=== PATIENT | female | born 1970 | race Caucasian/White ===

== ENCOUNTER 2018-04-11 06:59 | Emergency (ER) | payer OTHER ==
[~2018-04-11] VITALS: Ht 165.1 cm; Wt 122.0 kg
[~2018-04-11 06:59] MED LIST: ALBU90OI INH; AMLO10 PO; ASCO500 PO; ASPI325; ASPI81CH PO; ASPI81EC PO; ATEN25 PO; Bactrim Ds Tab1 EACH PO; CHOL10002 PO; Cipro500 MG PO; Cymbalta60 MG PO; DOXY100 PO; ERYSTE250 PO; ESTR2 PO; FISH1000 PO; Flagyl500 MG PO; GABA600 PO; HYDACE10B PO; HYDACE5 PO; HYDR1TAB94 PO; IBUP800 PO; INDO50 PO; META800 PO; MUCUS DM MAX T1 EACH PO; MULVITA; NAPR500 PO; NAPR550 PO; NITR100CA PO; NORT25 PO; Naprosyn500 MG PO; OXYACE5T PO; Omeprazole20 M1 PO; POTCHL20ER PO; PROM25 PO; Percocet 5-3251 EACH PO; Pyridium100 MG PO; ROXICODONE5 MG PO; RXNAPNA550 PO; Sprintec1 EACH PO; TOCO1000 PO; TOCO400 PO; Therapeutic M1 EAC5 PO; Zofran Odt4 MG SL
[2018-04-11] MEDS ORDERED: Norco 5-325 Ta1 EACH PO (09:48)
== END 2018-04-11 10:31 | disposition home or self-care (01) ==
LOC: ER 06:59
DX: R31.9 Hematuria, unspecified (principal); I10 Essential (primary) hypertension; F32.9 Major depressive disorder, single episode, unspecified; F41.9 Anxiety disorder, unspecified; J44.9 Chronic obstructive pulmonary disease, unspecified; F31.9 Bipolar disorder, unspecified; Z88.0 Allergy status to penicillin; Z88.8 Allergy status to other drugs, medicaments and biological substances; Z79.899 Other long term (current) drug therapy; Z79.82 Long term (current) use of aspirin; Z87.891 Personal history of nicotine dependence
CPT/HCPCS: 74176; 99284

== ENCOUNTER 2021-10-13 08:24 | Emergency (ER) | payer OTHER ==
[~2021-10-13] VITALS: Ht 165.1 cm; Wt 136.1 kg
[~2021-10-13 08:24] MED LIST changes: +Norco 5-325 Ta1 EACH PO
[2021-10-13 09:14] LABS: BASOPHILS ABSOLUTE AUTO 0.04 K/mm3 (0.00-0.23); BASOPHILS PERCENT AUTO 0 % (0-2); EOSINOPHILS ABSOLUTE AUTO 0.09 K/mm3 (0.00-0.68); EOSINOPHILS PERCENT AUTO 1 % (0-6); Hematocrit 41.7 % (33.0-51.0); Hemoglobin 14.5 g/dL (11.5-16.0); IMMATURE GRAN ABSOLUTE AUTO 0.02 K/mm3 (0.00-0.10); IMMATURE GRAN PERCENT AUTO 0 % (0-1); LYMPHOCYTES ABSOLUTE AUTO 1.73 K/mm3 (0.84-5.20); LYMPHOCYTES PERCENT AUTO 17 % (21-46); MONOCYTES ABSOLUTE AUTO 0.43 K/mm3 (0.16-1.47); MONOCYTES PERCENT AUTO 4 % (4-13); Mean Corpuscular HGB 34.7 pg (26.0-34.0); Mean Corpuscular HGB Conc 34.8 g/dL (31.5-36.5); Mean Corpuscular Volume 100 fL (80-100); Mean Platelet Volume 10.8 fL (9.1-12.4); NEUTROPHILS ABSOLUTE AUTO 7.83 K/mm3 (1.96-9.15); NEUTROPHILS PERCENT AUTO 77 % (41-73); Platelet Count 237 K/mm3 (150-400); RDW Coefficient Variation 12.4 % (11.7-14.2); Red Blood Cell Count 4.18 M/mm3 (3.80-5.20); White Blood Cell Count 10.14 K/mm3 (4.00-11.30)
[2021-10-13 09:46] LABS: Alanine Aminotransfer (ALT/SGP 130 U/L (12-78); Albumin, Blood 3.7 g/dL (3.4-5.0); Albumin/Globulin Ratio 1.1 (0.8-1.8); Alk Phos 113 U/L (50-136); Anion Gap 8 mmol/L (6-16); Aspartate Aminotrans (AST/SGOT 49 U/L (12-37); Bilirubin, Total 0.9 mg/dL (0.1-1.0); Blood Urea Nitrogen 12 mg/dL (8-24); Bun/Creatinine Ratio 12.5 (12.0-20.0); CO2, Blood 26 mmol/L (21-32); Calcium, Blood 9.6 mg/dL (8.5-10.1); Chloride, Blood 105 mmol/L (98-108); Creatinine, Blood 0.96 mg/dL (0.40-1.00); Globulin, Blood 3.3 g/dL (2.2-4.0); Glomerular Filtration Rate >60 (60-); Glucose, Blood 193 mg/dL (70-99); Potassium, Blood 4.2 mmol/L (3.5-5.5); Sodium, Blood 139 mmol/L (136-145)
[2021-10-13 10:00] LABS: Source, Urine Clean Catch
[2021-10-13 10:07] LABS: Bilirubin, Urine Neg (Neg); Blood, Urine 5+ (Neg); Glucose Qualitative, Urine Neg (Neg); Ketones, Urine 1+ (Neg); Leukocyte Esterase, Urine 1+ (Neg); Nitrite, Urine Neg (Neg); Protein, Urine 1+ (Neg); Specific Gravity, Urine 1.015 (1.003-1.022); Urobilinogen, Urine NORM (Normal)
[2021-10-13 10:30] LABS: Appearance, Urine Cloudy (Clear); Color, Urine Yellow (P-Yellow)
[2021-10-13 10:34] LABS: Bacteria Few /hpf; Red Blood Cells, Urine TNTC /hpf (0-2); Squamous Epithelial Cells Few /hpf (Few)
[2021-10-13] MEDS ORDERED: KETO10 PO (11:27)
[2021-10-13] MEDS ORDERED: HYDR1TAB94 PO (11:27)
[2021-10-13] MEDS ORDERED: Flomax0.4 MG PO (11:27)
== END 2021-10-13 11:55 | disposition home or self-care (01) ==
LOC: ER 08:24
PROVIDERS: Physician Assistant
DX: N13.2 Hydronephrosis with renal and ureteral calculous obstruction (principal); I10 Essential (primary) hypertension; Z88.0 Allergy status to penicillin; Z88.8 Allergy status to other drugs, medicaments and biological substances; Z79.899 Other long term (current) drug therapy; Z79.82 Long term (current) use of aspirin
CPT/HCPCS: 36415; 74176; 76705; 76857; 80053; 81001; 83690; 84484; 85025; 87086; 93005; 93010; J1170; J1885; J2405; J7030

== ENCOUNTER 2021-10-24 18:44 | Emergency (ER) | payer OTHER ==
[~2021-10-24] VITALS: Ht 165.1 cm; Wt 127.0 kg
[~2021-10-24 18:44] MED LIST changes: +Flomax0.4 MG PO; +KETO10 PO
== END 2021-10-24 20:38 | disposition home or self-care (01) ==
LOC: ER 18:44
DX: U07.1 COVID-19 (principal); I10 Essential (primary) hypertension; J44.9 Chronic obstructive pulmonary disease, unspecified; Z88.0 Allergy status to penicillin; Z88.8 Allergy status to other drugs, medicaments and biological substances; Z79.82 Long term (current) use of aspirin; Z79.899 Other long term (current) drug therapy
CPT/HCPCS: 99284

== ENCOUNTER → 2021-11-14 | Outpatient (CLI) | payer OTHER ==
[~2021-11-14] MED LIST changes: +CEPH500 PO; +TAMS.4ER PO
[2021-11-14 14:44] LABS: Source, Urine Voided
[2021-11-14 15:14] LABS: Appearance, Urine Cloudy (Clear); Color, Urine Brown (P-Yellow); Glucose Qualitative, Urine Neg (Normal); Ketones, Urine 1+ (Neg); Leukocyte Esterase, Urine 1+ (Neg); Nitrite, Urine Neg (Neg); Protein, Urine 3+ (Neg); Specific Gravity, Urine 1.025 (1.003-1.022); pH, Urine 6.5 (5.0-8.0)
[2021-11-14 15:15] LABS: Bacteria Mod /hpf; Bilirubin, Urine Neg (Neg); Blood, Urine 2+ (Neg); Mucus Mod (0-Heavy); Red Blood Cells, Urine TNTC /hpf (0-2); Squamous Epithelial Cells Rare /hpf (Few); Urobilinogen, Urine NORM (Normal)
[2021-11-14 15:16] LABS: Calcium Oxalate Crystals Many /hpf
== END | disposition home or self-care (01) ==
LOC: LAB SHORT 14:41
PROVIDERS: Urology
DX: N20.1 Calculus of ureter (principal); N39.0 Urinary tract infection, site not specified
CPT/HCPCS: 81001; 87077; 87086; 87186

== ENCOUNTER → 2022-01-14 | Outpatient (CLI) | payer OTHER | LOC: LAB SHORT 17:50 | DX: R30.0 Dysuria (principal) | CPT/HCPCS: 87086 ==

== ENCOUNTER 2022-02-24 06:00 | Emergency (ER) | payer OTHER ==
[~2022-02-24] VITALS: Ht 165.1 cm; Wt 136.1 kg
[2022-02-24 07:09] LABS: BASOPHILS ABSOLUTE AUTO 0.04 K/mm3 (0.00-0.23); BASOPHILS PERCENT AUTO 0 % (0-2); EOSINOPHILS ABSOLUTE AUTO 0.41 K/mm3 (0.00-0.68); EOSINOPHILS PERCENT AUTO 4 % (0-6); Hematocrit 40.3 % (33.0-51.0); Hemoglobin 13.8 g/dL (11.5-16.0); IMMATURE GRAN ABSOLUTE AUTO 0.03 K/mm3 (0.00-0.10); IMMATURE GRAN PERCENT AUTO 0 % (0-1); LYMPHOCYTES ABSOLUTE AUTO 1.91 K/mm3 (0.84-5.20); LYMPHOCYTES PERCENT AUTO 20 % (21-46); MONOCYTES ABSOLUTE AUTO 0.68 K/mm3 (0.16-1.47); MONOCYTES PERCENT AUTO 7 % (4-13); Mean Corpuscular HGB 34.5 pg (26.0-34.0); Mean Corpuscular HGB Conc 34.2 g/dL (31.5-36.5); Mean Corpuscular Volume 101 fL (80-100); Mean Platelet Volume 11.4 fL (9.1-12.4); NEUTROPHILS ABSOLUTE AUTO 6.61 K/mm3 (1.96-9.15); NEUTROPHILS PERCENT AUTO 68 % (41-73); Platelet Count 215 K/mm3 (150-400); RDW Coefficient Variation 12.8 % (11.7-14.2); RDW Standard Deviation 46.9 fL (35.1-46.3); White Blood Cell Count 9.68 K/mm3 (4.00-11.30)
[2022-02-24 07:43] LABS: Source, Urine Clean Catch
[2022-02-24 07:45] LABS: Alanine Aminotransfer (ALT/SGP 109 U/L (12-78); Albumin, Blood 3.2 g/dL (3.4-5.0); Albumin/Globulin Ratio 0.9 (0.8-1.8); Alk Phos 121 U/L (50-136); Anion Gap 6 mmol/L (6-16); Aspartate Aminotrans (AST/SGOT 44 U/L (12-37); Bilirubin, Total 0.6 mg/dL (0.1-1.0); Blood Urea Nitrogen 8 mg/dL (8-24); Bun/Creatinine Ratio 9.2 (12.0-20.0); CO2, Blood 26 mmol/L (21-32); Calcium, Blood 9.5 mg/dL (8.5-10.1); Chloride, Blood 108 mmol/L (98-108); Creatinine, Blood 0.87 mg/dL (0.40-1.00); Globulin, Blood 3.4 g/dL (2.2-4.0); Glomerular Filtration Rate >60 (60-); Glucose, Blood 152 mg/dL (70-99); Sodium, Blood 140 mmol/L (136-145); Total Protein, Blood 6.6 g/dL (6.4-8.2)
[2022-02-24 07:57] LABS: Appearance, Urine Turbid (Clear); Bilirubin, Urine Neg (Neg); Blood, Urine 5+ (Neg); Color, Urine Brown (P-Yellow); Glucose Qualitative, Urine Neg (Neg); Protein, Urine 3+ (Neg); Specific Gravity, Urine 1.025 (1.003-1.022); Urobilinogen, Urine NORM (Normal)
[2022-02-24 08:18] LABS: Ketones, Urine Neg (Neg); Leukocyte Esterase, Urine 1+ (Neg); Nitrite, Urine Neg (Neg)
[2022-02-24 08:23] LABS: Red Blood Cells, Urine TNTC /hpf (0-2)
[2022-02-24 08:24] LABS: Squamous Epithelial Cells Rare /hpf (Few)
[2022-02-24 08:25] LABS: Amorphous Light (0-Heavy); Bacteria Mod /hpf; Mucus Heavy (0-Heavy)
[2022-02-24] MEDS ORDERED: TAMS.4ER PO (10:10)
[2022-02-24] MEDS ORDERED: CEFP200 PO (10:10)
[2022-02-24] MEDS ORDERED: HYDR1TAB94 PO (10:10)
== END 2022-02-24 10:45 | disposition home or self-care (01) ==
LOC: ER 06:00
PROVIDERS: Emergency Medicine
DX: N13.2 Hydronephrosis with renal and ureteral calculous obstruction (principal); I10 Essential (primary) hypertension; J44.9 Chronic obstructive pulmonary disease, unspecified; Z88.0 Allergy status to penicillin; Z91.048 Other nonmedicinal substance allergy status; Z79.899 Other long term (current) drug therapy
CPT/HCPCS: 36415; 74177; 80053; 81001; 83690; 85025; J0696; J1170; J2405; J3010; J7030; Q9967

== ENCOUNTER 2022-02-26 03:16 | Inpatient (IN) | payer OTHER ==
[~2022-02-26] VITALS: Ht 165.1 cm; Wt 135.5 kg
[~2022-02-26 03:16] MED LIST changes: +CEFP200 PO; +GABA300 PO; -GABA600 PO
[2022-02-26 04:46] LABS: BASOPHILS ABSOLUTE AUTO 0.04 K/mm3 (0.00-0.23); BASOPHILS PERCENT AUTO 0 % (0-2); EOSINOPHILS ABSOLUTE AUTO 0.36 K/mm3 (0.00-0.68); EOSINOPHILS PERCENT AUTO 4 % (0-6); Hematocrit 37.8 % (33.0-51.0); Hemoglobin 12.7 g/dL (11.5-16.0); IMMATURE GRAN ABSOLUTE AUTO 0.04 K/mm3 (0.00-0.10); IMMATURE GRAN PERCENT AUTO 0 % (0-1); LYMPHOCYTES ABSOLUTE AUTO 1.59 K/mm3 (0.84-5.20); LYMPHOCYTES PERCENT AUTO 16 % (21-46); MONOCYTES ABSOLUTE AUTO 0.77 K/mm3 (0.16-1.47); MONOCYTES PERCENT AUTO 8 % (4-13); Mean Corpuscular HGB 34.9 pg (26.0-34.0); Mean Corpuscular HGB Conc 33.6 g/dL (31.5-36.5); Mean Corpuscular Volume 104 fL (80-100); NEUTROPHILS ABSOLUTE AUTO 6.94 K/mm3 (1.96-9.15); NEUTROPHILS PERCENT AUTO 71 % (41-73); RDW Coefficient Variation 12.6 % (11.7-14.2); RDW Standard Deviation 48.2 fL (35.1-46.3); Red Blood Cell Count 3.64 M/mm3 (3.80-5.20); White Blood Cell Count 9.74 K/mm3 (4.00-11.30)
[2022-02-26 05:04] LABS: Albumin, Blood 3.3 g/dL (3.4-5.0); Bilirubin, Total 0.4 mg/dL (0.1-1.0); Bun/Creatinine Ratio 7.6 (12.0-20.0); Calcium, Blood 8.9 mg/dL (8.5-10.1); Creatinine, Blood 1.32 mg/dL (0.40-1.00); Globulin, Blood 3.2 g/dL (2.2-4.0); Potassium, Blood 3.8 mmol/L (3.5-5.5); Total Protein, Blood 6.5 g/dL (6.4-8.2)
[2022-02-26 05:20] LABS: Mean Platelet Volume 11.5 fL (9.1-12.4); Platelet Count 133 K/mm3 (150-400)
[2022-02-26 08:31] LABS: Source, Urine Clean Catch
[2022-02-26 08:36] LABS: Appearance, Urine Cloudy (Clear); Bilirubin, Urine Neg (Neg); Blood, Urine 5+ (Neg); Color, Urine Brown (P-Yellow); Glucose Qualitative, Urine Neg (Neg); Ketones, Urine 1+ (Neg); Leukocyte Esterase, Urine 2+ (Neg); Nitrite, Urine Neg (Neg); Protein, Urine 3+ (Neg); Urobilinogen, Urine NORM (Normal)
[2022-02-26 08:52] LABS: Bacteria Few /hpf; Red Blood Cells, Urine TNTC /hpf (0-2); Squamous Epithelial Cells Few /hpf (Few); White Blood Cells, Urine 50-100 /hpf (0-5)
[2022-02-26] MEDS ORDERED: SPIR25 PO (11:32)
[2022-02-26] MEDS ORDERED: BUPROPION XL450 MG PO (11:32)
[2022-02-26] MEDS ORDERED: FAMO40 PO (11:35)
[2022-02-26 15:25] LABS: SARS-Cov-2 (COVID-19) PCR, MMC NEGATIVE (NEGATIVE)
[2022-02-26 15:56] LABS: Source, Urine Nephrostomy
[2022-02-26 16:01] LABS: Appearance, Urine Turbid (Clear); Bilirubin, Urine Neg (Neg); Blood, Urine 5+ (Neg); Color, Urine Brown (P-Yellow); Glucose Qualitative, Urine Neg (Neg); Ketones, Urine 1+ (Neg); Leukocyte Esterase, Urine Neg (Neg); Nitrite, Urine Neg (Neg); Protein, Urine 4+ (Neg); Urobilinogen, Urine NORM (Normal); pH, Urine 6.5 (5.0-8.0)
[2022-02-26 16:12] LABS: Bacteria Few /hpf; Mucus Light (0-Heavy); Red Blood Cells, Urine TNTC /hpf (0-2); Renal Epithelial Rare /hpf (0-Rare); Squamous Epithelial Cells Not Seen /hpf (Few); White Blood Cells, Urine 0-2 /hpf (0-5)
--- NOTE | 2022-02-26 19:17 | NUR ---
SHIFT SUMMARY 12:30 RECEIVED PT TO 336 [facility]IA [employer]. SLIDE TX TO BED. PT ADMITTED FOR CRISTY R/T KIDNEY STONES AND BL FLANK PAIN. IVF'S STARTED PER EMAR; BOLUS GIVEN. DR AGUIRRE HERE TO TALK WITH PT AND OBTAIN CONSENT FOR NEPHROSTOMY TUBES TO BE PLACED; PT HAD BEEN NPO IN ER FOR PROCEDURE. 1400 PT TAKEN DOWN; 1540 RECEIVED REPORT THAT ONLY [address] AGUIRRE UNABLE TO PLACE L SIDE TUBE. PER REPORT, PT TO GO TO [place] NEXT WEEK FOR INTERVENTION. PT HAS BEEN UP TO [facility] WITH SBA, VOIDING PEPSI COLORED URINE. PT REPORTS USING FWW AT BASELINE AT HOME. FWW OBTAINED FOR SAFETY. PT'S MOM HERE TO VISIT AFTER PT RETURNED TO . PT RESTING QUIETLY AT THIS TIME. CALL LT IN REACH. REPORT GIVEN TO ONCOMING RN.
[2022-02-27 04:45] LABS: Hematocrit 34.2 % (33.0-51.0); Hemoglobin 11.4 g/dL (11.5-16.0); Mean Corpuscular HGB 34.4 pg (26.0-34.0); Mean Corpuscular HGB Conc 33.3 g/dL (31.5-36.5); Mean Corpuscular Volume 103 fL (80-100); Mean Platelet Volume 10.9 fL (9.1-12.4); Platelet Count 206 K/mm3 (150-400); RDW Coefficient Variation 12.8 % (11.7-14.2); RDW Standard Deviation 48.9 fL (35.1-46.3); Red Blood Cell Count 3.31 M/mm3 (3.80-5.20); White Blood Cell Count 8.11 K/mm3 (4.00-11.30)
[2022-02-27 05:03] LABS: Bun/Creatinine Ratio 8.2 (12.0-20.0); Calcium, Blood 8.4 mg/dL (8.5-10.1); Creatinine, Blood 0.98 mg/dL (0.40-1.00); Potassium, Blood 3.7 mmol/L (3.5-5.5)
--- NOTE | 2022-02-27 05:05 | NUR ---
SHIFT SUMMARY: PATIENT CONTINUES TO REPORT R FLANK/SIDE PAIN. ALTERNATING OXYCODONE 5MG AND FENTANYL 50 MCG ARE PROVIDEING GOOD PAIN CONTROL. PATIENT HAS A GOOD APPETITE OBSERVED. URINE IS LIGHT TEA COLORED FROM BLADDER. URINE IN RIGHT NEPHROSTOMY IS PINK. DRSG WAS RE-ENFORCED, OLD SHADING OBSERVED.
--- NOTE | 2022-02-27 12:25 | NUR ---
PSYCH CONSULT ORDERED [facility] SPOKE WITH MERCHANDISE HANDLER. MERCHANDISE HANDLER RELAYED MESSAGE TO ME THAT [facility] CHECKS IN WITH PT PERIODCALLY FOR MENTAL HEALTH FOLLOW UP. ON THE LAST FOLLOW UP PT VOICED HOMICIDAL AND SUICIDAL TENDENCIES DAILY. DR CARMEN NOTIFIED AND A PSYCH CONSULT HAS BEEN ORDERED.
--- NOTE | 2022-02-27 18:02 | NUR ---
DAY SHIFT SUMMARY 51 YR OLD FEMALE HER FOR CRISTY AND NEPHROSTOMY TUBE PLACEMENT. MEDICATED PER EMAR FOR PAIN. ABLE TO AMBULATE IN ROOM WITH WALKER AND STANDBY ASSIST. EMPTIES OWN NEPHROSTOMY BAG INTO URINAL FOR MESURING. A/O X4. PSYCH CONSULT ORDERED. POSSIBLE DISCHARGE TOMORROW. CALL LIGHT WITHIN REACH OF PT AND ABLE TO CALL APPROPRIATELY.
--- NOTE | 2022-02-28 07:32 | NUR ---
SHIFT SUMMARY: PATIENT CONTINUES TO REPORT R FLANK PAIN 8-06/28. OXYCODONE Q4H AND 1 DOSE OF IV FENTANYL FOR BREAKTHROUGH PAIN PROVIDED EFFECTIVE PAIN CONTROL. PATIENT AMBULATED IN THE [place], APPROXIMATELY 100FT AND TOLERATED ACTIVITY WELL.
--- NOTE | 2022-02-28 17:20 | NUR ---
DAY SHIFT SUMMARY 51 YR OLD FEMALE WITH CRISTY AND NEPHROSTOMY TUBE PLACED TO RT SIDE. PT A/O AND INDEPENDENT WITH WALKER IN ROOM. CONTINUIOUS FLUIDS, RA. CALL LIGHT WITHIN REACH. PAIN MEDICATED PER EMAR. ABLE TO CALL APPROPRIATELY. NO ACUTE CHANGES THIS SHIFT.
[2022-02-28] MEDS ORDERED: DOCU100 PO (18:29)
[2022-02-28] MEDS ORDERED: ONDA4ODT MM (18:29)
[2022-02-28] MEDS ORDERED: OXAYDO5 M1 PO (18:31)
[2022-02-28] MEDS ORDERED: MIRALAX17 GM PO (18:31)
[2022-02-28] MEDS ORDERED: ACIDOPHILUS1 EAC3 PO (18:32)
--- NOTE | 2022-02-28 18:56 | NUR ---
DISCHARGE SUMMARY PT PULLED IV HERSELF STATING SHE BECAME IMPATIENT. SITE ASSESSED AND WRAPPED. PAPERWORK PREPAIRED AND PRINTED. EDUCATION REVIEWED WITH AND SIGNED BY PT. PT TRANSPORTED DOWN TO [facility] ALONG WITH PERSONAL BELONGINGS TO RIDE.
== END 2022-02-28 19:43 | disposition home or self-care (01) | DRG 699 ==
LOC: ER 03:16 → MEDS 10:32
PROVIDERS: Emergency Medicine; Nurse Practitioner Acute Care; Radiology Diagnostic Radiology; ADMIT Internal Medicine
PROC: 0T9030Z Drainage of Right Kidney with Drainage Device, Percutaneous Approach (ICD-10-PCS; principal; 2022-02-26)
DX: T83.193A Other mechanical complication of other urinary stent, initial encounter (principal); N13.6 Pyonephrosis; E87.2 Acidosis; Z68.42 Body mass index [BMI] 45.0-49.9, adult; N17.9 Acute kidney failure, unspecified; Z20.822 Contact with and (suspected) exposure to COVID-19; I10 Essential (primary) hypertension; F41.9 Anxiety disorder, unspecified; E66.01 Morbid (severe) obesity due to excess calories; R73.9 Hyperglycemia, unspecified; G47.33 Obstructive sleep apnea (adult) (pediatric); J44.9 Chronic obstructive pulmonary disease, unspecified; F90.9 Attention-deficit hyperactivity disorder, unspecified type; M79.7 Fibromyalgia; F31.9 Bipolar disorder, unspecified; G89.29 Other chronic pain; M54.9 Dorsalgia, unspecified; Z90.710 Acquired absence of both cervix and uterus; Z88.8 Allergy status to other drugs, medicaments and biological substances; Z88.0 Allergy status to penicillin; Z90.722 Acquired absence of ovaries, bilateral; Z98.890 Other specified postprocedural states; Z90.89 Acquired absence of other organs; Z79.82 Long term (current) use of aspirin; Z87.891 Personal history of nicotine dependence; Z79.899 Other long term (current) drug therapy; Y83.1 Surgical operation with implant of artificial internal device as the cause of abnormal reaction of the patient, or of later complication, without mention of misadventure at the time of the procedure
CPT/HCPCS: 36415; 50432; 76937; 80048; 80053; 81001; 83036; 83605; 85025; 85027; 87086; 94760; 96374; 96375; 96376; 99152; 99153; 99285-25; A9270; C1729; C1769; J0696; J1170; J1885; J2250; J2270; J3010; J7030; J7120; Q9967; U0004

== ENCOUNTER → 2022-04-03 | Outpatient (CLI) | payer OTHER ==
[~2022-04-03] MED LIST changes: +ACIDOPHILUS1 EAC3 PO; +BUPROPION XL450 MG PO; +DOCU100 PO; +FAMO40 PO; +MIRALAX17 GM PO; +ONDA4ODT MM; +OXAYDO5 M1 PO; +SPIR25 PO
== END ==
LOC: LAB SHORT 17:41 → LAB 17:41
DX: N39.0 Urinary tract infection, site not specified (principal)
CPT/HCPCS: 87077; 87086; 87186

== ENCOUNTER 2023-02-26 07:47 | Day surgery (SDC) | payer OTHER ==
[~2023-02-26] VITALS: Ht 165.1 cm; Wt 126.7 kg
--- NOTE | 2023-02-26 07:10 | NUR ---
02/26/23 [address] TOSCANO, SEE ANESTHESIA RECORDS.
[~2023-02-26 07:47] MED LIST changes: +FAMO20 PO
[2023-02-26 08:28] VITALS: BP 142/70
--- NOTE | 2023-02-26 08:42 | NUR ---
[facility] in [facility] warming gown applied. Patient states colon prep results clear. History, Chart, Medications and Allergies reviewed before start of procedure.Lungs clear T/O to Auscultation. Patient confirms NPO status and agrees with scheduled surgery. Pre-Op teaching done. Pt verbalizes understanding. Patient States Post-Procedure ride home has been arranged.
[2023-02-26 09:36] VITALS: BP 129/81
[2023-02-26 09:47] VITALS: BP 132/81
--- NOTE | 2023-02-26 10:19 | NUR ---
DISCHARGE SUMMARY PT A&OX4, VSS/RA, ELIZABETH PO H20, IV DC'D, DRESSED SELF, DAUGHTER AT BEDSIDE, DC INS PROVIDED, PT REP UNDERSTANDING THOSE INSTRUCTIONS. LEFT DEPT VIA WC WITH RN, TO GO HOME WITH MOM [employer] AND DAUGHTER BRENT, WITH ALL PERSONAL POSSESSIONS INCLUDING GLASSES AND DC INS.
== END 2023-02-26 23:06 | disposition home or self-care (01) ==
LOC: ORSCMMR 07:47 → ORD 08:45 → ORSCMMR 23:06
PROVIDERS: Internal Medicine Gastroenterology
PROC: 0DBM8ZX Excision of Descending Colon, Via Natural or Artificial Opening Endoscopic, Diagnostic (ICD-10-PCS; principal; 2023-02-26 08:45)
PROC: 0DBN8ZX Excision of Sigmoid Colon, Via Natural or Artificial Opening Endoscopic, Diagnostic (ICD-10-PCS; principal; 2023-02-26 08:45)
PROC: 0DBK8ZX Excision of Ascending Colon, Via Natural or Artificial Opening Endoscopic, Diagnostic (ICD-10-PCS; principal; 2023-02-26 08:45)
DX: Z12.11 Encounter for screening for malignant neoplasm of colon (principal); D12.2 Benign neoplasm of ascending colon; D12.4 Benign neoplasm of descending colon; K63.5 Polyp of colon; G47.33 Obstructive sleep apnea (adult) (pediatric); F32.A Depression, unspecified; I10 Essential (primary) hypertension; E66.01 Morbid (severe) obesity due to excess calories; Z68.42 Body mass index [BMI] 45.0-49.9, adult; Z79.899 Other long term (current) drug therapy
CPT/HCPCS: 88305; J2704; J7120

== ENCOUNTER 2023-05-30 16:01 | Emergency (ER) | payer OTHER ==
[~2023-05-30] VITALS: Ht 165.1 cm; Wt 121.6 kg
[2023-05-30 17:02] LABS: BASOPHILS ABSOLUTE AUTO 0.04 K/mm3 (0.00-0.23); BASOPHILS PERCENT AUTO 0 % (0-2); EOSINOPHILS ABSOLUTE AUTO 0.06 K/mm3 (0.00-0.68); EOSINOPHILS PERCENT AUTO 1 % (0-6); Hematocrit 43.5 % (33.0-51.0); Hemoglobin 15.1 g/dL (11.5-16.0); IMMATURE GRAN ABSOLUTE AUTO 0.03 K/mm3 (0.00-0.10); IMMATURE GRAN PERCENT AUTO 0 % (0-1); LYMPHOCYTES ABSOLUTE AUTO 2.33 K/mm3 (0.84-5.20); LYMPHOCYTES PERCENT AUTO 23 % (21-46); MONOCYTES ABSOLUTE AUTO 0.76 K/mm3 (0.16-1.47); MONOCYTES PERCENT AUTO 8 % (4-13); Mean Corpuscular HGB 33.6 pg (26.0-34.0); Mean Corpuscular HGB Conc 34.7 g/dL (31.5-36.5); Mean Corpuscular Volume 97 fL (80-100); Mean Platelet Volume 11.3 fL (9.1-12.4); NEUTROPHILS ABSOLUTE AUTO 6.88 K/mm3 (1.96-9.15); NEUTROPHILS PERCENT AUTO 68 % (41-73); Platelet Count 242 K/mm3 (150-400); RDW Coefficient Variation 12.2 % (11.7-14.2); RDW Standard Deviation 43.4 fL (35.1-46.3); Red Blood Cell Count 4.49 M/mm3 (3.80-5.20)
[2023-05-30 17:37] LABS: Albumin/Globulin Ratio 1.1 (0.8-1.8); Bilirubin, Total 0.8 mg/dL (0.1-1.0); Bun/Creatinine Ratio 9.9 (12.0-20.0); Calcium, Blood 9.6 mg/dL (8.5-10.1); Creatinine, Blood 1.11 mg/dL (0.40-1.00); Globulin, Blood 3.6 g/dL (2.2-4.0); Potassium, Blood 3.8 mmol/L (3.5-5.5); Total Protein, Blood 7.6 g/dL (6.4-8.2)
[2023-05-30 19:50] LABS: Source, Urine Clean Catch
[2023-05-30 19:54] LABS: Appearance, Urine Hazy (Clear); Bilirubin, Urine Neg (Neg); Blood, Urine Neg (Neg); Color, Urine Yellow (P-Yellow); Glucose Qualitative, Urine Neg (Neg); Ketones, Urine 1+ (Neg); Leukocyte Esterase, Urine 1+ (Neg); Nitrite, Urine Neg (Neg); Protein, Urine 2+ (Neg); Specific Gravity, Urine 1.025 (1.003-1.022); Urobilinogen, Urine NORM (Normal)
[2023-05-30 20:11] LABS: Mucus Heavy (0-Heavy)
[2023-05-30 20:12] LABS: Bacteria Many /hpf; Red Blood Cells, Urine 0-2 /hpf (0-2); Squamous Epithelial Cells Many /hpf (Few)
[2023-05-30 20:13] LABS: Transitional Epithelial Cells Few /hpf (0-Rare)
[2023-05-30] MEDS ORDERED: DOCU100 PO (22:15)
[2023-05-30 22:42] VITALS: BP 137/91
== END 2023-05-30 22:43 | disposition home or self-care (01) ==
LOC: ER 16:01
PROVIDERS: Physician Assistant
DX: R10.11 Right upper quadrant pain (principal); R10.31 Right lower quadrant pain; E66.9 Obesity, unspecified; I10 Essential (primary) hypertension; J44.9 Chronic obstructive pulmonary disease, unspecified; G47.30 Sleep apnea, unspecified; K21.9 Gastro-esophageal reflux disease without esophagitis; Z68.41 Body mass index [BMI] 40.0-44.9, adult; Z88.0 Allergy status to penicillin; Z91.048 Other nonmedicinal substance allergy status; Z79.82 Long term (current) use of aspirin; Z79.899 Other long term (current) drug therapy; Z87.891 Personal history of nicotine dependence
CPT/HCPCS: 74177; 80053; 81001; 81025; 84702; 84703; 85025; 87086; 96360; 99284-25; J7030; Q9967

== ENCOUNTER 2025-06-20 15:15 | Inpatient (IN) | payer OTHER ==
[~2025-06-20] VITALS: Ht 165.1 cm; Wt 127.0 kg
[2025-06-20] MEDS ORDERED: Ondansetron HCl 2 MG / ML 2ML Vial IV ONE ×2 (15:50→18:15)
[2025-06-20] MEDS ORDERED: NS 1,000 ML IV SCH ×2 (15:50→18:15)
[2025-06-20] MEDS ORDERED: Ketorolac Tromethamine 15mg Vial IV ONE (15:50)
[2025-06-20 15:58] LABS: BASOPHILS ABSOLUTE AUTO 0.05 K/mm3 (0.00-0.23); BASOPHILS PERCENT AUTO 0 % (0-2); EOSINOPHILS ABSOLUTE AUTO 0.08 K/mm3 (0.00-0.68); EOSINOPHILS PERCENT AUTO 1 % (0-6); Hematocrit 41.8 % (33.0-51.0); Hemoglobin 14.5 g/dL (11.5-16.0); IMMATURE GRAN ABSOLUTE AUTO 0.06 K/mm3 (0.00-0.10); IMMATURE GRAN PERCENT AUTO 0 % (0-1); LYMPHOCYTES ABSOLUTE AUTO 1.30 K/mm3 (0.84-5.20); LYMPHOCYTES PERCENT AUTO 9 % (21-46); MONOCYTES ABSOLUTE AUTO 0.66 K/mm3 (0.16-1.47); MONOCYTES PERCENT AUTO 5 % (4-13); Mean Corpuscular HGB Conc 34.7 g/dL (31.5-36.5); Mean Corpuscular Volume 96 fL (80-100); NEUTROPHILS ABSOLUTE AUTO 12.53 K/mm3 (1.96-9.15); NEUTROPHILS PERCENT AUTO 85 % (41-73); NRBC ABSOLUTE 0.00 K/mm3 (0.00-0.02); NRBC Auto 0.0 /100 WBC (0.0-0.2); Platelet Count 248 K/mm3 (150-400); RDW Coefficient Variation 12.2 % (11.7-14.2); RDW Standard Deviation 42.7 fL (35.1-46.3)
[2025-06-20 16:20] LABS: Source, Urine Clean Catch
[2025-06-20 16:25] LABS: Bilirubin, Urine Neg (Neg); Color, Urine Amber (P-Yellow); Glucose Qualitative, Urine Neg (Neg); Ketones, Urine Neg (Neg); Leukocyte Esterase, Urine 1+ (Neg); Protein, Urine 1+ (Neg); Specific Gravity, Urine 1.030 (1.003-1.022); Urobilinogen, Urine 2+ (Normal)
[2025-06-20 16:39] LABS: Red Blood Cells, Urine 0-2 /hpf (0-2); White Blood Cells, Urine 0-2 /hpf (0-5)
[2025-06-20 16:40] LABS: Alanine Aminotransfer (ALT/SGP 103.0 U/L (12-78); Albumin, Blood 3.5 g/dL (3.4-5.0); Albumin/Globulin Ratio 0.9 (0.8-1.8); Anion Gap 8.0 mmol/L (3-11); Aspartate Aminotrans (AST/SGOT 108.0 U/L (12-37); Bilirubin, Total 1.5 mg/dL (0.1-1.0); Blood Urea Nitrogen 8.0 mg/dL (8-24); CO2, Blood 26.0 mmol/L (21-32); Calcium, Blood 9.1 mg/dL (8.5-10.1); Chloride, Blood 108.0 mmol/L (98-108); Creatinine, Blood 0.79 mg/dL (0.40-1.00); Globulin, Blood 3.8 g/dL (2.2-4.0); Glucose, Blood 243.0 mg/dL (70-99); Potassium, Blood 3.8 mmol/L (3.5-5.5); Sodium, Blood 138.0 mmol/L (136-145); Total Protein, Blood 7.3 g/dL (6.4-8.2)
[2025-06-20] MEDS ORDERED: HYDROmorphone HCl/Pf 1MG SYR IV ONE ×2 (17:30→20:25)
[2025-06-20] MEDS ORDERED: Morphine Sulfate 4 MG/1 ML Injection IV ONE (18:15)
[2025-06-20] MEDS ORDERED: LAMOTRIGINE100 M1 PO (18:16)
[2025-06-20] MEDS ORDERED: BUPROPION XL150 M1 PO (18:16)
[2025-06-20] MEDS ORDERED: SPIRONOLACTONE25 MG PO (18:16)
[2025-06-20] MEDS ORDERED: DESVENLAFAXINE50 M3 PO (18:17)
[2025-06-20] MEDS ORDERED: CefTRIAXone Sodium 1,000 MG in NS 100 ML IV ONE (18:20)
[2025-06-20] MEDS ORDERED: MetroNIDAZOLE 500MG/NS 100 ml 100 ML IV ONE (20:25)
[2025-06-20] MEDS ORDERED: FentaNYL Citrate 50 MCG/ML 2 ML Injection IV PRN (21:25)
[2025-06-20] MEDS ORDERED: Ondansetron HCl 2 MG / ML 2ML Vial IV PRN (21:25)
[2025-06-20] MEDS ORDERED: Metoclopramide HCl 5MG / ML 2ML Vial IV PRN (21:25)
[2025-06-20] MEDS ORDERED: HydrALAZINE HCl 20 MG / ML 1ML Vial IV PRN (21:25)
[2025-06-20 23:13] VITALS: BP 146/89
--- NOTE | 2025-06-21 00:20 | NUR ---
TRANSFER NOTE: PT AOX4, IND IN THE ROOM. ORIENTED TO ROOM AND CALL LIGHT. COMPLAINTS OF PAIN, MEDICATED PER EMR. IS VERY TALKATIVE. SEEMS TO BE QUITE DEPRESSED AT BL. PT PLEASANT AND COOPERATIVE IN CARE. PT IN BED RESTING, BED IN LOWEST POSITION, CALL LIGHT IN REACH. CONTINUING CARE.
[2025-06-21 00:44] LABS: BASOPHILS ABSOLUTE AUTO 0.03 K/mm3 (0.00-0.23); BASOPHILS PERCENT AUTO 0 % (0-2); EOSINOPHILS ABSOLUTE AUTO 0.01 K/mm3 (0.00-0.68); EOSINOPHILS PERCENT AUTO 0 % (0-6); Hematocrit 41.3 % (33.0-51.0); Hemoglobin 14.0 g/dL (11.5-16.0); IMMATURE GRAN ABSOLUTE AUTO 0.09 K/mm3 (0.00-0.10); IMMATURE GRAN PERCENT AUTO 1 % (0-1); LYMPHOCYTES ABSOLUTE AUTO 1.39 K/mm3 (0.84-5.20); LYMPHOCYTES PERCENT AUTO 11 % (21-46); MONOCYTES ABSOLUTE AUTO 0.62 K/mm3 (0.16-1.47); MONOCYTES PERCENT AUTO 5 % (4-13); Mean Corpuscular HGB Conc 33.9 g/dL (31.5-36.5); Mean Corpuscular Volume 97 fL (80-100); NEUTROPHILS ABSOLUTE AUTO 10.24 K/mm3 (1.96-9.15); NEUTROPHILS PERCENT AUTO 83 % (41-73); NRBC ABSOLUTE 0.00 K/mm3 (0.00-0.02); NRBC Auto 0.0 /100 WBC (0.0-0.2); Platelet Count 215 K/mm3 (150-400); RDW Coefficient Variation 12.3 % (11.7-14.2); RDW Standard Deviation 44.1 fL (35.1-46.3)
[2025-06-21 01:00] LABS: Prothrombin Time Results 11.1 Sec (9.7-11.5)
[2025-06-21 01:05] LABS: Magnesium, Blood 1.7 mg/dL (1.6-2.4)
[2025-06-21] MEDS ORDERED: HYDROmorphone HCl/Pf 1MG SYR IV PRN ×2 (01:05→11:05)
[2025-06-21 01:06] LABS: Alanine Aminotransfer (ALT/SGP 233.0 U/L (12-78); Albumin, Blood 3.1 g/dL (3.4-5.0); Albumin/Globulin Ratio 0.8 (0.8-1.8); Anion Gap 9.0 mmol/L (3-11); Aspartate Aminotrans (AST/SGOT 261.0 U/L (12-37); Bilirubin, Total 1.2 mg/dL (0.1-1.0); Blood Urea Nitrogen 6.0 mg/dL (8-24); CO2, Blood 26.0 mmol/L (21-32); Calcium, Blood 8.3 mg/dL (8.5-10.1); Chloride, Blood 108.0 mmol/L (98-108); Creatinine, Blood 0.66 mg/dL (0.40-1.00); Globulin, Blood 3.7 g/dL (2.2-4.0); Glucose, Blood 137.0 mg/dL (70-99); Potassium, Blood 4.0 mmol/L (3.5-5.5); Sodium, Blood 139.0 mmol/L (136-145); Total Protein, Blood 6.8 g/dL (6.4-8.2)
[2025-06-21 01:15] VITALS: BP 118/93
[2025-06-21 03:58] VITALS: BP 133/82
--- NOTE | 2025-06-21 05:12 | NUR ---
SHIFT SUMMARY: PT AOX4, IND IN THE ROOM. CALLS APPROPRIATELY AND ABLE TO MAKE NEEDS KNOWN. PAINFUL AND TENDER ABD. MEDICATED PER EMR. LACTIC WAS ELEVATED, PROVIDER NOTIFIED. VSS. PT SEEMS ANXIOUS AND VERY TALKATIVE OVERSHARING AT TIMES. PT STILL VERY PLEASANT AND COOPERATIVE IN CARE. TOLERATING MEDICATIONS WELL. ON 2L NC, DUE OPIATES FOR PAIN MANAGEMENT AND NOT BEING ON CPAP. TOLERATING WELL. NO ACUTE OVERNIGHT EVENTS. PT IN BED SLEEPING, BED IN LOWEST POSITION, CALL LIGHT IN REACH. CONTINUING CARE.
[2025-06-21 07:19] VITALS: BP 129/81
[2025-06-21] MEDS ORDERED: Lactobacil 2-S.Thermo-Bifido 1 1 Cap PO SCH (09:00)
[2025-06-21 16:41] VITALS: BP 112/69
[2025-06-21 20:08] VITALS: BP 120/76
--- NOTE | 2025-06-21 20:13 | NUR ---
End of shift summary: Patient is alert and oriented x4; pleasant and cooperative with care. Patient with continued pain to abdomen and radiating to back and medicated with Dilaudid per EMAR with good relief noted. Patient IV to right arm with significant pain/tenderness and removed today with left arm IV patent and running IV fluids. All medications administered per EMAR. Patient remains independent in room; denies SOB, CP, N/V/D. Continuous biox; 2L Oxygen in place. No acute changes this shift. Patient utilizing call light appropriately; call light within reach, bed in lowest position. Report given to mine shifter nurse.
[2025-06-21] MEDS ORDERED: NS 250 ML IV PRN (20:15)
[2025-06-21] MEDS ORDERED: CefTRIAXone Sodium 1,000 MG in NS 100 ML IV SCH (21:00)
[2025-06-22 03:16] VITALS: BP 138/75
[2025-06-22 04:33] LABS: BASOPHILS ABSOLUTE AUTO 0.05 K/mm3 (0.00-0.23); BASOPHILS PERCENT AUTO 0 % (0-2); EOSINOPHILS ABSOLUTE AUTO 0.26 K/mm3 (0.00-0.68); EOSINOPHILS PERCENT AUTO 2 % (0-6); Hematocrit 39.3 % (33.0-51.0); Hemoglobin 13.4 g/dL (11.5-16.0); IMMATURE GRAN ABSOLUTE AUTO 0.04 K/mm3 (0.00-0.10); IMMATURE GRAN PERCENT AUTO 0 % (0-1); LYMPHOCYTES ABSOLUTE AUTO 2.44 K/mm3 (0.84-5.20); LYMPHOCYTES PERCENT AUTO 21 % (21-46); MONOCYTES ABSOLUTE AUTO 0.88 K/mm3 (0.16-1.47); MONOCYTES PERCENT AUTO 8 % (4-13); Mean Corpuscular HGB Conc 34.1 g/dL (31.5-36.5); Mean Corpuscular Volume 99 fL (80-100); NEUTROPHILS ABSOLUTE AUTO 8.09 K/mm3 (1.96-9.15); NEUTROPHILS PERCENT AUTO 69 % (41-73); NRBC ABSOLUTE 0.00 K/mm3 (0.00-0.02); NRBC Auto 0.0 /100 WBC (0.0-0.2); Platelet Count 233 K/mm3 (150-400); RDW Coefficient Variation 12.3 % (11.7-14.2); RDW Standard Deviation 44.5 fL (35.1-46.3)
--- NOTE | 2025-06-22 04:38 | NUR ---
SHIFT SUMMARY ADMITTED FOR PANCREATITIS. ALSO HAS UTI. FULL CODE. WE ARE MONITORING LABS. IV FLUIDS INFUSING ORDERED. IV ANTIB RX ARE SCHEDULED. PAIN MEDICATION FOR RUQ ABDOMINAL PAIN GIVEN. SURGICAL CONSULT IS DR. DIOP. SHE HAS BEEN NPO SINCE MIDNIGHT IN CASE OF SURGICAL INTERVENTION. SHE IS INDEPENDENT IN ROOM. ON 2 1/2 LPM O2 VIA NC. SHE HAS A HX OF ANXIETY AND REASSURANCE IS HELPFUL.
[2025-06-22 06:55] LABS: Alanine Aminotransfer (ALT/SGP 200.0 U/L (12-78); Albumin, Blood 3.1 g/dL (3.4-5.0); Albumin/Globulin Ratio 0.9 (0.8-1.8); Anion Gap 9.0 mmol/L (3-11); Aspartate Aminotrans (AST/SGOT 127.0 U/L (12-37); Bilirubin, Total 0.8 mg/dL (0.1-1.0); Blood Urea Nitrogen 4.0 mg/dL (8-24); CO2, Blood 30.0 mmol/L (21-32); Calcium, Blood 8.4 mg/dL (8.5-10.1); Chloride, Blood 103.0 mmol/L (98-108); Creatinine, Blood 0.77 mg/dL (0.40-1.00); Globulin, Blood 3.5 g/dL (2.2-4.0); Glucose, Blood 84.0 mg/dL (70-99); Potassium, Blood 3.2 mmol/L (3.5-5.5); Sodium, Blood 139.0 mmol/L (136-145); Total Protein, Blood 6.6 g/dL (6.4-8.2)
[2025-06-22 07:23] VITALS: BP 141/82
[2025-06-22 16:39] VITALS: BP 124/85
--- NOTE | 2025-06-22 17:02 | NUR ---
PT AOX4 AND COOPERATIVE OF CARE. CONTINUE TO TREAT ABD PAIN PER EMAR. PT DOES STATE PAIN HAS IMPROVED. PT INDEPENDENT TO ROOM AND ABLE TO MAKE NEEDS KNOWN. CALL LIGHT WITHIIN REACH WILL CONTINUE TO MONITOR.
[2025-06-22 19:48] VITALS: BP 113/74
[2025-06-23] VITALS (14 sets, daily range): BP systolic 113–146; BP diastolic 76–90
--- NOTE | 2025-06-23 04:30 | NUR ---
SHIFT SUMMARY ADMITTED FOR PANCREATITIS. FULL CODE. ANTIB RX ARE SCHEDULED. IV FLUIDS INFUSING. DR. DIOP IS SURGICAL CONSULT. PT HAS BEEN NPO SINCE MIDNIGHT. A&O X4, INDEPENDENT IN ROOM. 2 1/2 LPM O2 VIA NC. SHE DOES HAVE A UTI. NO NEW CONCERNS THIS SHIFT. HER PAIN SEEMS TO HAVE LESSENED SOME THIS SHIFT.
[2025-06-23 05:02] LABS: BASOPHILS ABSOLUTE AUTO 0.03 K/mm3 (0.00-0.23); BASOPHILS PERCENT AUTO 0 % (0-2); EOSINOPHILS ABSOLUTE AUTO 0.21 K/mm3 (0.00-0.68); EOSINOPHILS PERCENT AUTO 2 % (0-6); Hematocrit 35.5 % (33.0-51.0); Hemoglobin 12.4 g/dL (11.5-16.0); IMMATURE GRAN ABSOLUTE AUTO 0.02 K/mm3 (0.00-0.10); IMMATURE GRAN PERCENT AUTO 0 % (0-1); LYMPHOCYTES ABSOLUTE AUTO 1.79 K/mm3 (0.84-5.20); LYMPHOCYTES PERCENT AUTO 16 % (21-46); MONOCYTES ABSOLUTE AUTO 1.01 K/mm3 (0.16-1.47); MONOCYTES PERCENT AUTO 9 % (4-13); Mean Corpuscular HGB Conc 34.9 g/dL (31.5-36.5); Mean Corpuscular Volume 98 fL (80-100); NEUTROPHILS ABSOLUTE AUTO 8.02 K/mm3 (1.96-9.15); NEUTROPHILS PERCENT AUTO 72 % (41-73); NRBC ABSOLUTE 0.00 K/mm3 (0.00-0.02); NRBC Auto 0.0 /100 WBC (0.0-0.2); Platelet Count 191 K/mm3 (150-400); RDW Coefficient Variation 12.2 % (11.7-14.2); RDW Standard Deviation 44.1 fL (35.1-46.3)
[2025-06-23 05:27] LABS: Alanine Aminotransfer (ALT/SGP 121.0 U/L (12-78); Albumin, Blood 2.8 g/dL (3.4-5.0); Albumin/Globulin Ratio 1.0 (0.8-1.8); Anion Gap 5.0 mmol/L (3-11); Aspartate Aminotrans (AST/SGOT 52.0 U/L (12-37); Bilirubin, Total 0.8 mg/dL (0.1-1.0); Blood Urea Nitrogen 3.0 mg/dL (8-24); CO2, Blood 33.0 mmol/L (21-32); Calcium, Blood 8.4 mg/dL (8.5-10.1); Chloride, Blood 105.0 mmol/L (98-108); Creatinine, Blood 0.68 mg/dL (0.40-1.00); Globulin, Blood 2.9 g/dL (2.2-4.0); Glucose, Blood 97.0 mg/dL (70-99); Potassium, Blood 3.5 mmol/L (3.5-5.5); Sodium, Blood 139.0 mmol/L (136-145); Total Protein, Blood 5.7 g/dL (6.4-8.2)
--- NOTE | 2025-06-23 12:00 | NUR ---
History, Chart, Medications and Allergies reviewed before start of procedure. Pre-Op teaching done. Pt verbalizes understanding. Patient confirms NPO status and agrees with scheduled surgery. PT LEFT ALL BELONGINGS, INCLUDING GLASSES, IN MED FLOOR ROOM.
[2025-06-23] MEDS ORDERED: Bupivacaine 0.5% HCl 5 MG/ML 30MLVIAL ONE (12:56)
[2025-06-23] MEDS ORDERED: FentaNYL Citrate 50 MCG/ML 2 ML Injection ONE (14:40)
[2025-06-23] MEDS ORDERED: Rocuronium Bromide 10 MG/ML 5ML Injection IV ONE ×2 (14:40→14:41)
[2025-06-23] MEDS ORDERED: Dexamethasone Sod Phos 10 MG/ML 1ML VIAL ONE (14:51)
[2025-06-23] MEDS ORDERED: FentaNYL Citrate 50 MCG/ML 2 ML Injection IV PRN (15:00)
[2025-06-23] MEDS ORDERED: Ondansetron HCl 2 MG / ML 2ML Vial IV PRN (15:00)
[2025-06-23] MEDS ORDERED: HYDROmorphone HCl/Pf 1MG SYR IV PRN (15:00)
--- NOTE | 2025-06-23 15:11 | NUR ---
ATTEMPTED TO CALL REPORT TO SURGICAL NURSE WHO IS ON LUNCH. CHARGE NURSE TO NOTIFY AND HAVE HIM CALL ME BACK. WILL TRY AGAIN SOON IF NO CALL BACK.
[2025-06-23] MEDS ORDERED: Sugammadex Sodium 200 MG/2ML SDV (100 MG/ML) ONE ×2 (15:43→16:19)
--- NOTE | 2025-06-23 15:52 | NUR ---
REPORT GIVEN TO LYNETTE SURGICAL NURSE. PT STILL IN OR. BELONGINGS WERE GATHERED AND TAKEN DOWN TO NEW ROOM 217.
[2025-06-23] MEDS ORDERED: Ondansetron HCl 2 MG / ML 2ML Vial ONE (15:59)
[2025-06-23] MEDS ORDERED: Ketorolac Tromethamine 30mg Vial ONE (15:59)
[2025-06-23] MEDS ORDERED: HYDROmorphone HCl/Pf 1MG SYR ONE (16:01)
[2025-06-23] MEDS ORDERED: HYDROcodone 5-APAP 325 TAB PO PRN (16:15)
[2025-06-23] MEDS ORDERED: Albuterol 2.5 MG/3 ML VIAL ONE (16:47)
--- NOTE | 2025-06-23 17:13 | NUR ---
pt to room from pacu @1710 AXO4, DROWSY. PT STATES PAIN RELATED TO THROAT POST EXTUBATION. FLUIDS INFUSING. LAP SITES X4 CDI. DENYING NAUSEA. PO FLUIDS BEING TOLERATED CURRENTLY. PT ATTEMPTED TO VOID ON BEDPAN, UNSUCCESFUL AT THIS POINT. FAMILY IN ROOM. ARRIVED ON 3LNC, TITRATED TO 4.5LNC BC PT CURRENTLY DESATURATING WITH HOW DROWSY SHE IS, SP02 >92% WITH MINOR DESATS. PT CONVERSING WITH FAMILY. CALL LIGHT WITHIN REACH. SCDS ON.
--- NOTE | 2025-06-24 04:50 | NUR ---
SHIFT SUMMARY; PATIENT SLEPT IN SHORT INTERVALS WAS AWAKE ON HER PHONE LATE. TAKING ORAL PAIN MEDS WELL, NO NAUSEA. TOLERATING CLEAR LIQUID DIET ALSO.
[2025-06-24 05:19] VITALS: BP 114/73
[2025-06-24 07:55] VITALS: BP 143/79
[2025-06-24 11:11] VITALS: BP 122/65
[2025-06-24] MEDS ORDERED: Norco 5-325 Ta1 EACH PO (12:49)
--- NOTE | 2025-06-24 13:47 | NUR ---
DISCHARGE NOTE POD 1 LAP APOLLO. VSS. TITRATED FROM 2L VIA NC TO ROOM AIR - SATs >90%. PAIN TOLERABLE - DENIES NEED FOR MANAGEMENT PER EMAR AT THIS TIME. HARD SCRIPT PROVIDED FOR NARCOTIC PRESCRIPTION. X4 LAP SITES W/ STERI STRIPS C/D/I W/ NO DRAINAGE NOTED. TOLERATING FULL LIQUID DIET - EDUCATION PROVIDED TO ADVANCE DIET TOLERATED. VOIDING. WRITTEN AND VERBAL EDUCATION PROVIDED - PATIENT STATES UNDERSTANDING. IV REMOVED. PATIENTs MOM TO TRANSPORT HER HOME. PERSONAL BELONGINGS W/ PATIENT.
== END 2025-06-24 13:50 | disposition home or self-care (01) | DRG 417 ==
LOC: ER 15:15 → MEDS 21:21 → SURS 06-23 15:35
PROVIDERS: Internal Medicine; Nurse Practitioner Acute Care; Student in an Organized Health Care Education/Training Program; Surgery; ADMIT Internal Medicine
PROC: 0FT44ZZ Resection of Gallbladder, Percutaneous Endoscopic Approach (ICD-10-PCS; principal; 2025-06-23 11:00)
DX: K80.20 Calculus of gallbladder without cholecystitis without obstruction (principal); K85.10 Biliary acute pancreatitis without necrosis or infection; N39.0 Urinary tract infection, site not specified; Z68.42 Body mass index [BMI] 45.0-49.9, adult; I10 Essential (primary) hypertension; K21.9 Gastro-esophageal reflux disease without esophagitis; M79.7 Fibromyalgia; E66.01 Morbid (severe) obesity due to excess calories; G47.33 Obstructive sleep apnea (adult) (pediatric); M54.9 Dorsalgia, unspecified; G89.29 Other chronic pain; Z91.199 Patient's noncompliance with other medical treatment and regimen due to unspecified reason; F41.8 Other specified anxiety disorders; Z87.442 Personal history of urinary calculi; Z88.0 Allergy status to penicillin; Z88.8 Allergy status to other drugs, medicaments and biological substances; Z91.048 Other nonmedicinal substance allergy status; Z79.82 Long term (current) use of aspirin; Z79.899 Other long term (current) drug therapy; Z90.89 Acquired absence of other organs; Z98.890 Other specified postprocedural states; Z90.710 Acquired absence of both cervix and uterus; Z90.722 Acquired absence of ovaries, bilateral; Z90.79 Acquired absence of other genital organ(s); Z87.891 Personal history of nicotine dependence
CPT/HCPCS: 36415; 71046; 74177; 76705; 80053; 81001; 83605; 83690; 83735; 83880; 84484; 85025; 85610; 87040; 87077; 87086; 87186; 93005; 93010; 94760; 94762; 96361; 96374; 96375; 96376; 99285-25; A9270; C1729; J0696; J1100; J1171; J1885; J2270; J2405; J2704; J3010; J3480; J7030; J7050; J7120; Q9967